=== PATIENT | male | born 1990 | race Caucasian/White ===

== ENCOUNTER 2018-10-18 20:06 | Emergency (ER) | payer MEDICAID ==
[~2018-10-18] VITALS: Ht 182.9 cm; Wt 119.4 kg
[2018-10-18 20:19] VITALS: BP 211/101
[2018-10-18] MEDS ORDERED: GENTAMICIN 0.3% OPHTH DROPS 5ML OP ONE (22:30)
[2018-10-18] MEDS ORDERED: TETRACAINE 0.5% OPHTH DROPS 4ML OP ONE (22:30)
[2018-10-18] MEDS ORDERED: FLUORESCEIN SODIUM 1MG/STRIP OP ONE (22:30)
== END 2018-10-18 22:50 | disposition home or self-care (01) ==
LOC: ER 21:16
DX: S05.01XA Injury of conjunctiva and corneal abrasion without foreign body, right eye, initial encounter (principal); X58.XXXA Exposure to other specified factors, initial encounter; Y93.89 Activity, other specified; Y92.89 Other specified places as the place of occurrence of the external cause; Y99.8 Other external cause status
CPT/HCPCS: 99284

== ENCOUNTER 2019-10-20 14:33 | Emergency (ER) | payer MEDICAID ==
[~2019-10-20] VITALS: Ht 182.9 cm; Wt 114.0 kg
[2019-10-20 14:46] VITALS: BP 170/95
== END 2019-10-20 17:55 | disposition left against medical advice (07) ==
LOC: ER 14:33
DX: Z53.21 Procedure and treatment not carried out due to patient leaving prior to being seen by health care provider (principal); I10 Essential (primary) hypertension; R73.03 Prediabetes